=== PATIENT | female | born 1970 | race African-American/Black ===

== ENCOUNTER 2017-07-12 13:06 | Emergency (ER) | payer MEDICAID, SELFPAY ==
[2017-07-12] MEDS ORDERED: Morphine 4 MG/ML VIAL ONE (14:02)
[2017-07-12] MEDS ORDERED: Ondansetron ODT 4 MG TAB ONE (14:02)
[2017-07-12 14:08] LABS: #Lymphocytes 1.4 thou/uL (1.20-3.40); #Monocytes 0.4 thou/uL (0.11-0.59); #Neutrophils 2.4 thou/uL (1.40-6.50); %Basophils 0.3 % (0.0-1.0); %Lymphocytes 33.2 % (21.0-51.0); %Monocytes 8.8 % (0.0-10.0); %Neutrophils 56.7 % (42.0-75.0); Hemoglobin 11.5 g/dL (12.0-16.0); Mean Corpuscular HGB CONC 32.7 g/dL (32.0-36.0); Mean Corpuscular Hemoglobin 27.4 pg (27.0-31.0); Mean Corpuscular Volume 83.7 fl (81.0-99.0); Mean Platelet Volume 10.7 fL (7.4-10.4); Platelet Count 135 thou/uL (130-400); RBC Distribution Width 13.4 % (11.5-14.5); Red Blood Cell (RBC) Count 4.19 mill/uL (4.20-5.40); White Blood Cell (WBC) Count 4.2 thou/uL (4.8-10.8)
[2017-07-12 14:15] LABS: Reticulocyte Count 1.1 % (0.5-1.5)
[2017-07-12 14:32] LABS: ALT (SGPT) 11 U/L (8-55); AST (SGOT) 15 U/L (5-34); Albumin 4.2 g/dL (3.5-5.0); Alkaline Phosphatase 38 U/L (40-150); Anion Gap 10 mmol/L (10-20); BUN (Urea Nitrogen) 23 mg/dL (7.0-18.7); Bilirubin, Total 0.3 mg/dL (0.2-1.2); CRP (Inflammatory) Less than 0.50 mg/dL (= or < 0.5); Calc. Creatinine Clearance 0 mL/min (70-130); Calcium 9.3 mg/dL (7.8-10.44); Carbon Dioxide 25 mmol/L (22-29); Chloride 110 mmol/L (98-107); Estimated GFR-MDRD 71; Globulin 3.3 g/dL (2.4-3.5); Glucose 80 mg/dL (70-105); Potassium 4.2 mmol/L (3.5-5.1); Protein, Total 7.5 g/dL (6.0-8.3); Sodium 141 mmol/L (136-145)
--- NOTE | 2017-07-12 14:38 | RAD ---
TWO VIEWS RIGHT HIP: Indication: Right hip pain. Comparison: None. FINDINGS: There is moderate to severe osteoarthrosis of the right hip. No acute fracture or subluxation is evid ent. IMPRESSION: Osteoarthrosis of the right hip. No acute osseous abnormality. POS: [facility]
--- NOTE | 2017-07-12 14:43 | RAD ---
THREE VIEWS LUMBAR SPINE: Indication: Lumbar back pain. FINDINGS: There are five lumbar type vertebrae. Vertebral body heights and disc spaces are preserved. Spinal al ignment is within normal limits. IMPRESSION: No acute osseous abnormality. The lumbar spine appears radiographically normal. POS: [facility]
== END 2017-07-12 15:11 | disposition home or self-care (01) ==
LOC: ERS 13:06
DX: M25.551 Pain in right hip (principal); I10 Essential (primary) hypertension; D64.9 Anemia, unspecified; F17.210 Nicotine dependence, cigarettes, uncomplicated
CPT/HCPCS: 36415; 72100; 80053; 85025; 85046; 86140; 96361; 96374; J2270; Q0162

== ENCOUNTER 2018-03-09 18:38 | Emergency (ER) | payer OTHER, SELFPAY ==
[2018-03-09 20:16] LABS: #Eosinphils 0.1 thou/uL (0.0-0.7); #Lymphocytes 1.4 thou/uL (1.20-3.40); #Monocytes 0.2 thou/uL (0.11-0.59); #Neutrophils 2.5 thou/uL (1.40-6.50); %Basophils 0.6 % (0.0-1.0); %Eosinophils 2.3 % (0.0-10.0); %Lymphocytes 32.4 % (21.0-51.0); %Monocytes 5.7 % (0.0-10.0); Hemoglobin 11.2 g/dL (12.0-16.0); Mean Corpuscular HGB CONC 32.7 g/dL (32.0-36.0); Mean Corpuscular Hemoglobin 27.9 pg (27.0-31.0); Mean Corpuscular Volume 85.4 fL (78.0-98.0); Mean Platelet Volume 10.1 fL (7.4-10.4); Platelet Count 146 thou/uL (130-400); Red Blood Cell (RBC) Count 4.01 mill/uL (4.20-5.40); White Blood Cell (WBC) Count 4.3 thou/uL (4.8-10.8)
[2018-03-09 20:35] LABS: ALT (SGPT) 14 U/L (8-55); AST (SGOT) 16 U/L (5-34); Albumin 4.2 g/dL (3.5-5.0); Alkaline Phosphatase 43 U/L (40-150); Anion Gap 13 mmol/L (10-20); BUN (Urea Nitrogen) 19 mg/dL (7.0-18.7); Bilirubin, Total 0.3 mg/dL (0.2-1.2); Calc. Creatinine Clearance 0 mL/min (70-130); Calcium 8.8 mg/dL (7.8-10.44); Carbon Dioxide 22 mmol/L (22-29); Chloride 110 mmol/L (98-107); Estimated GFR-MDRD 75; Globulin 3.8 g/dL (2.4-3.5); Glucose 87 mg/dL (70-105); Potassium 4.1 mmol/L (3.5-5.1); Sodium 141 mmol/L (136-145)
[2018-03-09] MEDS ORDERED: Morphine 4 MG/ML VIAL ONE (21:15)
[2018-03-09] MEDS ORDERED: Ondansetron PF 4 MG/2 ML Vial ONE (21:15)
[2018-03-09] MEDS ORDERED: methylPREDNISolone Sod Succ/PF 125 MG/2 ML VIAL ONE (22:05)
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
== END 2018-03-09 23:34 | disposition home or self-care (01) ==
LOC: ERS 18:38
DX: J45.901 Unspecified asthma with (acute) exacerbation (principal); J06.9 Acute upper respiratory infection, unspecified; D64.9 Anemia, unspecified; D57.1 Sickle-cell disease without crisis; I10 Essential (primary) hypertension; F17.210 Nicotine dependence, cigarettes, uncomplicated
CPT/HCPCS: 36415; 71046; 80053; 85025; 85046; 87804; 96361; 96374; 96375; J2270; J2405; J2930; J7620

== ENCOUNTER 2018-03-11 09:27 | Emergency (ER) | payer OTHER ==
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
== END 2018-03-11 12:22 | disposition home or self-care (01) ==
LOC: ERS 09:27
DX: J45.901 Unspecified asthma with (acute) exacerbation (principal); F17.210 Nicotine dependence, cigarettes, uncomplicated; D57.1 Sickle-cell disease without crisis; I10 Essential (primary) hypertension; Z79.899 Other long term (current) drug therapy; Z79.51 Long term (current) use of inhaled steroids
CPT/HCPCS: 71045

== ENCOUNTER 2018-11-06 09:25 | Emergency (ER) | payer OTHER ==
[2018-11-06] MEDS ORDERED: Aspirin Chewable 81 MG TAB ONE (09:50)
[2018-11-06] MEDS ORDERED: Nitroglycerin 0.4 MG TAB 1 EACH ONE (09:50)
[2018-11-06 10:31] LABS: #Eosinphils 0.1 thou/uL (0.0-0.7); #Lymphocytes 1.2 thou/uL (1.20-3.40); #Monocytes 0.3 thou/uL (0.11-0.59); #Neutrophils 1.8 thou/uL (1.40-6.50); %Basophils 0.5 % (0.0-1.0); %Eosinophils 3.7 % (0.0-10.0); %Lymphocytes 34.3 % (21.0-51.0); %Monocytes 9.5 % (0.0-10.0); Hemoglobin 12.2 g/dL (12.0-16.0); Mean Corpuscular HGB CONC 31.6 g/dL (32.0-36.0); Mean Corpuscular Hemoglobin 26.9 pg (27.0-31.0); Mean Platelet Volume 10.6 fL (7.4-10.4); Platelet Count 141 thou/uL (130-400); RBC Distribution Width 13.8 % (11.5-14.5); Red Blood Cell (RBC) Count 4.52 mill/uL (4.20-5.40); White Blood Cell (WBC) Count 3.4 thou/uL (4.8-10.8)
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
[2018-11-06 10:41] LABS: Reticulocyte Count 1.1 % (0.5-1.5)
[2018-11-06 10:53] LABS: ALT (SGPT) 14 U/L (8-55); AST (SGOT) 19 U/L (5-34); Albumin 4.3 g/dL (3.5-5.0); Alkaline Phosphatase 43 U/L (40-150); Anion Gap 11 mmol/L (10-20); BUN (Urea Nitrogen) 14 mg/dL (7.0-18.7); Bilirubin, Total 0.4 mg/dL (0.2-1.2); Calc. Creatinine Clearance 0 mL/min (70-130); Calcium 9.5 mg/dL (7.8-10.44); Carbon Dioxide 26 mmol/L (22-29); Chloride 105 mmol/L (98-107); Estimated GFR-MDRD 88; Globulin 3.4 g/dL (2.4-3.5); Glucose 74 mg/dL (70-105); Protein, Total 7.7 g/dL (6.0-8.3); Sodium 138 mmol/L (136-145)
[2018-11-06] MEDS ORDERED: cloNIDine 0.1 MG TAB ONE (11:36)
[2018-11-06] MEDS ORDERED: Ondansetron PF 4 MG/2 ML Vial ONE (11:36)
[2018-11-06] MEDS ORDERED: Acetaminophen 500 MG TAB ONE (11:40)
[2018-11-06 12:33] LABS: Bilirubin Negative (Negative); Blood, Urine Negative (Negative); Clarity Clear (Clear); Glucose, Urine (Dipstick) Normal (Negative); Leukocyte Negative Leu/uL (Negative); Nitrite Negative (Negative); Protein, Urine (Dipstick) Negative (Neg-Trace); Urobilinogen Normal mg/dL (Less than 2)
--- NOTE | 2018-11-09 13:26 | EKG ---
Test Reason : Blood Pressure : / mmHG Vent. Rate : 071 BPM Atrial Rate : 071 BPM P-R Int : 190 ms QRS Dur : 084 ms QT Int : 410 ms P-R-T Axes : 029 007 022 degrees QTc Int : 445 ms Normal sinus rhythm Normal ECG Confirmed by MARY BAL, JOSE Murphy ([id number]), loan expeditor RENETTA BROWN ([id number]) on 11/09/2018 1:26:04 PM Referred By: Confirmed By:JOSE HERNANDEZ MD
== END 2018-11-06 14:18 | disposition home or self-care (01) ==
LOC: ERS 09:25
DX: R07.9 Chest pain, unspecified (principal); I10 Essential (primary) hypertension; D64.9 Anemia, unspecified; F17.210 Nicotine dependence, cigarettes, uncomplicated; Z79.899 Other long term (current) drug therapy; Z79.51 Long term (current) use of inhaled steroids
CPT/HCPCS: 71045; 80053; 81003; 84484; 85025; 85046; 93005; 94760; 96374; J2405

== ENCOUNTER 2019-12-05 19:38 | Emergency (ER) | payer OTHER, SELFPAY ==
[2019-12-05] MEDS ORDERED: Albuterol 200 PUFF (6.7GM INHALER) ONE (20:10)
[2019-12-05] MEDS ORDERED: Dexamethasone 10 MG/ML VIAL ONE (20:10)
[2019-12-05 20:15] LABS: #Eosinphils 0.1 thou/uL (0.0-0.7); #Lymphocytes 1.2 thou/uL (1.20-3.40); #Monocytes 0.4 thou/uL (0.11-0.59); #Neutrophils 3.8 thou/uL (1.40-6.50); %Basophils 0.2 % (0.0-1.0); %Lymphocytes 21.8 % (21.0-51.0); %Monocytes 6.5 % (0.0-10.0); %Neutrophils 70.5 % (42.0-75.0); Hemoglobin 11.1 g/dL (12.0-16.0); Mean Corpuscular HGB CONC 33.4 g/dL (32.0-36.0); Mean Corpuscular Hemoglobin 28.5 pg (27.0-31.0); Mean Corpuscular Volume 85.2 fL (78.0-98.0); Mean Platelet Volume 11.4 fL (7.4-10.4); Platelet Count 134 thou/uL (130-400); RBC Distribution Width 14.3 % (11.5-14.5); Red Blood Cell (RBC) Count 3.91 mill/uL (4.20-5.40); White Blood Cell (WBC) Count 5.3 thou/uL (4.8-10.8)
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
[2019-12-05] MEDS ORDERED: Azithromycin 500 MG VIAL ONE (20:36)
[2019-12-05] MEDS ORDERED: cefTRIAXone\\ROCEPHIN 2 GM VIAL ONE (20:36)
[2019-12-05 20:39] LABS: ALT (SGPT) 12 U/L (8-55); AST (SGOT) 18 U/L (5-34); Albumin 4.2 g/dL (3.5-5.0); Alkaline Phosphatase 45 U/L (40-110); Anion Gap 11 mmol/L (10-20); BUN (Urea Nitrogen) 12 mg/dL (7.0-18.7); Bilirubin, Total 0.3 mg/dL (0.2-1.2); Calc. Creatinine Clearance 0 mL/min (70-130); Calcium 8.8 mg/dL (7.8-10.44); Carbon Dioxide 26 mmol/L (22-29); Chloride 107 mmol/L (98-107); Estimated GFR-MDRD 81; Globulin 3.6 g/dL (2.4-3.5); Glucose 90 mg/dL (70-105); Potassium 3.6 mmol/L (3.5-5.1); Protein, Total 7.8 g/dL (6.0-8.3); Sodium 140 mmol/L (136-145)
[2019-12-05] MEDS ORDERED: Ibuprofen 200 MG TAB ONE (21:09)
[2019-12-05 21:20] LABS: Bacteria/HPF Rare-Few HPF (None Seen); Bilirubin Negative (Negative); Blood, Urine Negative (Negative); Clarity Clear (Clear); Glucose, Urine (Dipstick) Normal (Negative); Ketone, Urine Negative (Negative); Leukocyte 500 Leu/uL (Negative); Nitrite Negative (Negative); Protein, Urine (Dipstick) Negative (Neg-Trace); RBC/HPF 0-3 HPF (0-3); Urobilinogen Normal mg/dL (Less than 2)
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
[2019-12-05] MEDS ORDERED: Ondansetron PF 4 MG/2 ML Vial ONE (22:54)
[2019-12-06 15:25] LABS: SARS-CoV-2 MS2 Positive; SARS-CoV-2 N Gene Negative; SARS-CoV-2 S Gene Negative; SARS-CoV-2 by NAA Not Detected (NotDetected); SARS-CoV-2 orf1ab Negative
--- NOTE | 2019-12-13 10:06 | EKG ---
Test Reason : Blood Pressure : / mmHG Vent. Rate : 098 BPM Atrial Rate : 098 BPM P-R Int : 198 ms QRS Dur : 088 ms QT Int : 348 ms P-R-T Axes : 055 003 031 degrees QTc Int : 444 ms Normal sinus rhythm Possible Left atrial enlargement Borderline ECG Confirmed by JANENE BAL, CAPRICE ([id number]), visual effects editor RENETTA BROWN ([id number]) on 12/13/2019 10:05:46 AM Referred By: Confirmed By:CAPRICE WATTERS MD
== END 2019-12-05 23:27 | disposition home or self-care (01) ==
LOC: ERS 19:38
DX: R50.9 Fever, unspecified (principal); R05 Cough; R06.02 Shortness of breath; Z20.828 Contact with and (suspected) exposure to other viral communicable diseases; I10 Essential (primary) hypertension; D64.9 Anemia, unspecified; J45.909 Unspecified asthma, uncomplicated; F41.9 Anxiety disorder, unspecified; F17.210 Nicotine dependence, cigarettes, uncomplicated; Z79.899 Other long term (current) drug therapy
CPT/HCPCS: 36415; 71045; 71275; 80053; 81003; 81015; 83605; 84484; 85025; 85379; 87040; 87635; 93005; 96365; 96366; 96367; 96375; J0456; J0696; J1100; J2405; U0003

== ENCOUNTER 2021-01-19 02:48 | Inpatient (IN) | payer SELFPAY ==
[2021-01-19 03:13] VITALS: BMI 24.5
[2021-01-19] MEDS ORDERED: Albuterol Sulfate 1.25 MG/3 ML NEB NEB PRN (04:03)
[2021-01-19] MEDS: Nicotine 14 MG PATCH TD SCH (05:08)
[2021-01-19] MEDS: methylPREDNISolone Sod Succ 40 MG VIAL IVP SCH ×4 (05:08→23:55)
[2021-01-19 05:46] LABS: Reticulocyte Count 1.2 % (0.5-1.5)
[2021-01-19 05:47] LABS: #Lymphocytes 0.5 thou/uL (1.20-3.40); #Monocytes 0.1 thou/uL (0.11-0.59); #Neutrophils 5.4 thou/uL (1.40-6.50); %Basophils 0.5 % (0.0-1.0); %Lymphocytes 8.5 % (21.0-51.0); %Monocytes 2.4 % (0.0-10.0); %Neutrophils 88.6 % (42.0-75.0); Hemoglobin 10.1 g/dL (12.0-16.0); Mean Corpuscular Hemoglobin 27.5 pg (27.0-31.0); Mean Platelet Volume 10.6 fL (7.4-10.4); Platelet Count 122 thou/uL (130-400); RBC Distribution Width 14.5 % (11.5-14.5); Red Blood Cell (RBC) Count 3.66 mill/uL (4.20-5.40); White Blood Cell (WBC) Count 6.1 thou/uL (4.8-10.8)
[2021-01-19 06:09] LABS: Anion Gap 13 mmol/L (10-20); BUN (Urea Nitrogen) 15 mg/dL (7.0-18.7); Calc. Creatinine Clearance 77 mL/min (70-130); Calcium 8.8 mg/dL (7.8-10.44); Carbon Dioxide 25 mmol/L (22-29); Chloride 105 mmol/L (98-107); Glucose 260 mg/dL (70-105); Potassium 4.4 mmol/L (3.5-5.1); Sodium 139 mmol/L (136-145)
[2021-01-19] MEDS ORDERED: FLU VACC QS2021-22(6MOS UP)/PF 60 MCG/0.5 ML SYRINGE IM ONE (09:00)
[2021-01-19] MEDS: Benzonatate 100 MG CAP PO PRN ×2 (09:40→20:13)
[2021-01-19] MEDS: Acetaminophen 325 MG TAB PO PRN ×2 (09:40→19:56)
[2021-01-19] MEDS ORDERED: Acetylcysteine 20% 200 MG/ML 30 ML VIAL INH SCH (12:18)
[2021-01-19] MEDS ORDERED: Fioricet 325/50/40 mg Tablet PO SCH (12:30)
[2021-01-19] MEDS ORDERED: Amlodipine 5 MG TAB PO SCH (14:15)
[2021-01-19] MEDS: hydrALAZINE 20 MG/ML VIAL SLOW IVP PRN ×2 (14:18→17:49)
[2021-01-19] MEDS ORDERED: Polyethylene Glycol 3350 17 GM Packet PO PRN (15:42)
[2021-01-19] MEDS: Fioricet 325/50/40 mg Tablet PO PRN (19:55)
[2021-01-19] MEDS: guaiFENesin ER 600 MG TAB PO SCH (20:09)
[2021-01-19] MEDS: busPIRone HCl 10 MG TAB PO SCH (20:09)
[2021-01-19] MEDS: cloNIDine 0.2 MG TAB PO SCH (20:10)
[2021-01-19] MEDS: Acetylcysteine 20% 200 MG/ML 30 ML VIAL INH SCH (20:11)
[2021-01-19] MEDS: Senokot S 8.6-50 MG TAB PO SCH (20:12)
[2021-01-20] MEDS: Nicotine 14 MG PATCH TD SCH ×2 (05:11→05:16)
[2021-01-20] MEDS: methylPREDNISolone Sod Succ 40 MG VIAL IVP SCH (05:11)
[2021-01-20] MEDS: Benzonatate 100 MG CAP PO PRN (05:29)
[2021-01-20] MEDS: Fioricet 325/50/40 mg Tablet PO PRN (05:29)
[2021-01-20] MEDS: Acetaminophen 325 MG TAB PO PRN (05:33)
[2021-01-20] MEDS: Acetylcysteine 20% 200 MG/ML 30 ML VIAL INH SCH (06:33)
[2021-01-20] MEDS ORDERED: Amlodipine 5 MG TAB PO SCH (09:00)
[2021-01-20] MEDS: busPIRone HCl 10 MG TAB PO SCH (09:18)
[2021-01-20] MEDS: cloNIDine 0.2 MG TAB PO SCH (09:18)
[2021-01-20] MEDS: guaiFENesin ER 600 MG TAB PO SCH (09:19)
[2021-01-20] MEDS: Senokot S 8.6-50 MG TAB PO SCH (09:19)
[2021-01-20 11:36] VITALS: BP 90/57; TEMP 97.8
== END 2021-01-20 12:25 | disposition home or self-care (01) | DRG 189 ==
LOC: INTOOBSV 02:48 → 2SW 02:48 → OBSVTOIN 12:19 → T4-B 15:07
PROVIDERS: ADMIT Student in an Organized Health Care Education/Training Program; ATTEND Family Medicine
DX: J96.01 Acute respiratory failure with hypoxia (principal); J45.901 Unspecified asthma with (acute) exacerbation; I10 Essential (primary) hypertension; Z20.822 Contact with and (suspected) exposure to COVID-19; Z96.641 Presence of right artificial hip joint; F17.210 Nicotine dependence, cigarettes, uncomplicated; D57.1 Sickle-cell disease without crisis; Z86.73 Personal history of transient ischemic attack (TIA), and cerebral infarction without residual deficits; Z71.6 Tobacco abuse counseling; Z79.899 Other long term (current) drug therapy; Z98.51 Tubal ligation status
CPT/HCPCS: 36415; 80048; 85025; 85046; 94640; J0132; J0360; J2920; J7620

== ENCOUNTER 2021-07-04 10:16 | Inpatient (IN) | payer OTHER, SELFPAY ==
[2021-07-04] MEDS ORDERED: Labetalol HCl 100 MG/20 ML VIAL ONE (10:49)
[2021-07-04 10:59] LABS: #Lymphocytes 1.2 thou/uL (1.20-3.40); #Monocytes 0.4 thou/uL (0.11-0.59); #Neutrophils 1.8 thou/uL (1.40-6.50); %Basophils 1.4 % (0.0-1.0); %Lymphocytes 35.3 % (21.0-51.0); %Monocytes 11.4 % (0.0-10.0); %Neutrophils 50.9 % (42.0-75.0); Hemoglobin 12.1 g/dL (12.0-16.0); Mean Corpuscular HGB CONC 32.1 g/dL (32.0-36.0); Mean Corpuscular Hemoglobin 28.2 pg (27.0-31.0); Mean Corpuscular Volume 87.7 fL (78.0-98.0); Mean Platelet Volume 10.5 fL (7.4-10.4); Platelet Count 123 thou/uL (130-400); RBC Distribution Width 13.5 % (11.5-14.5); Red Blood Cell (RBC) Count 4.29 mill/uL (4.20-5.40); White Blood Cell (WBC) Count 3.5 thou/uL (4.8-10.8)
[2021-07-04 11:18] LABS: ALT (SGPT) 17 U/L (8-55); AST (SGOT) 21 U/L (5-34); Albumin 4.3 g/dL (3.5-5.0); Alkaline Phosphatase 38 U/L (40-110); Anion Gap 13 mmol/L (10-20); BUN (Urea Nitrogen) 15 mg/dL (7.0-18.7); Bilirubin, Total 0.5 mg/dL (0.2-1.2); Calc. Creatinine Clearance 0 mL/min (70-130); Calcium 9.2 mg/dL (7.8-10.44); Carbon Dioxide 23 mmol/L (22-29); Chloride 109 mmol/L (98-107); Globulin 3.6 g/dL (2.4-3.5); Glucose 84 mg/dL (70-105); Potassium 3.6 mmol/L (3.5-5.1); Protein, Total 7.9 g/dL (6.0-8.3); Sodium 141 mmol/L (136-145)
[2021-07-04] MEDS ORDERED: Senokot S 8.6-50 MG TAB PO PRN (14:38)
[2021-07-04] MEDS ORDERED: HYDROcodone/Acetaminophen 5/325 mg Tablet PO PRN (14:38)
[2021-07-04] MEDS ORDERED: Loperamide HCl 2 MG CAP PO PRN (14:38)
[2021-07-04] MEDS ORDERED: Acetaminophen 325 MG TAB PO PRN (14:38)
[2021-07-04] MEDS ORDERED: Calcium Carbonate 500 MG ChewTAB PO PRN (14:38)
[2021-07-04] MEDS ORDERED: Guaifenesin DM 100-10/5 ML UDCUP PO PRN (14:38)
[2021-07-04] MEDS ORDERED: Cyclobenzaprine 10 MG TAB PO SCH (14:45)
[2021-07-04] MEDS ORDERED: Aspirin 81 mg Enteric Coated Tablet PO SCH (15:30)
[2021-07-04] MEDS ORDERED: Lidocaine 5% Patch TD SCH (16:00)
[2021-07-04] MEDS ORDERED: Nicotine 14 MG PATCH TD SCH (16:00)
[2021-07-04 17:13] VITALS: BMI 26.7
[2021-07-04] MEDS: Famotidine 20 MG TAB PO SCH (20:56)
[2021-07-04] MEDS ORDERED: Atorvastatin Calcium 40 MG TAB PO SCH (21:00)
[2021-07-05 00:05] LABS: SARS-CoV-2 PCR by NAA Not Detected (NotDetected)
[2021-07-05] MEDS ORDERED: Transdermal Patch Removal TOP SCH (04:00)
[2021-07-05 05:11] LABS: #Monocytes 0.2 thou/uL (0.11-0.59); #Neutrophils 1.4 thou/uL (1.40-6.50); %Eosinophils 1.3 % (0.0-10.0); %Lymphocytes 38.2 % (21.0-51.0); %Monocytes 8.5 % (0.0-10.0); Hemoglobin 10.8 g/dL (12.0-16.0); Mean Corpuscular HGB CONC 31.4 g/dL (32.0-36.0); Mean Corpuscular Hemoglobin 27.7 pg (27.0-31.0); Mean Corpuscular Volume 88.2 fL (78.0-98.0); Mean Platelet Volume 10.8 fL (7.4-10.4); Platelet Count 124 thou/uL (130-400); RBC Distribution Width 13.6 % (11.5-14.5); Red Blood Cell (RBC) Count 3.89 mill/uL (4.20-5.40); White Blood Cell (WBC) Count 2.6 thou/uL (4.8-10.8)
[2021-07-05 05:22] LABS: Hemoglobin A1c 5.6 % (4.0-6.0)
[2021-07-05 05:35] LABS: Anion Gap 12 mmol/L (10-20); BUN (Urea Nitrogen) 15 mg/dL (7.0-18.7); Calc. Creatinine Clearance 107 mL/min (70-130); Calcium 8.7 mg/dL (7.8-10.44); Carbon Dioxide 23 mmol/L (22-29); Cardiac Risk 4.6 (Less than 4.5); Chloride 108 mmol/L (98-107); Cholesterol 185 mg/dl (< 200 Desired); Glucose 88 mg/dL (70-105); HDL Cholesterol 40 mg/dL (>60 Neg Risk); LDL Cholesterol, Calculated 117 mg/dL; Potassium 3.4 mmol/L (3.5-5.1); Sodium 140 mmol/L (136-145); Triglycerides 139 mg/dL (Less than 150)
[2021-07-05] MEDS: Famotidine 20 MG TAB PO SCH (08:28)
[2021-07-05] MEDS ORDERED: Aspirin 81 mg Enteric Coated Tablet PO SCH (09:00)
[2021-07-05] MEDS ORDERED: Fioricet 325/50/40 mg Tablet PO PRN (09:26)
[2021-07-05 12:22] VITALS: TEMP 99.1
[2021-07-05] MEDS ORDERED: Albuterol Sulfate 1.25 MG/3 ML NEB NEB SCH (12:30)
[2021-07-05 12:42] VITALS: BP 152/110
[2021-07-05] MEDS ORDERED: Amlodipine 5 MG TAB PO SCH (15:00)
[2021-07-05] MEDS ORDERED: Non-Formulary Item 1 EACH (Albuterol Sulfate [Albuterol Sulfate Neb] 0.63 MG/3 ML Vial.Ne NEB SCH (15:00)
[2021-07-05] MEDS ORDERED: busPIRone HCl 10 MG TAB PO SCH (21:00)
[2021-07-05] MEDS ORDERED: Losartan 25 MG TAB PO SCH (21:00)
== END 2021-07-05 15:52 | disposition home or self-care (01) | DRG 69 ==
LOC: ERS 10:16 → NEURO 15:47
PROVIDERS: ADMIT Internal Medicine; ATTEND Internal Medicine
DX: G45.9 Transient cerebral ischemic attack, unspecified (principal); G81.94 Hemiplegia, unspecified affecting left nondominant side; Z20.822 Contact with and (suspected) exposure to COVID-19; J45.909 Unspecified asthma, uncomplicated; F17.210 Nicotine dependence, cigarettes, uncomplicated; I10 Essential (primary) hypertension; D57.1 Sickle-cell disease without crisis; K21.9 Gastro-esophageal reflux disease without esophagitis; Z79.51 Long term (current) use of inhaled steroids; Z79.52 Long term (current) use of systemic steroids; Z79.899 Other long term (current) drug therapy; Z86.73 Personal history of transient ischemic attack (TIA), and cerebral infarction without residual deficits
CPT/HCPCS: 36415; 70450; 70551; 80048; 80053; 80061; 83036; 84443; 84484; 85025; 93005; 93306; 93880; 94640; 96374; U0003; U0005

== ENCOUNTER 2024-03-24 20:39 | Emergency (ER) | payer SELFPAY ==
[2024-03-24 21:45] LABS: Lipase 20 U/L (8-78)
[2024-03-24 21:48] LABS: Acetaminophen Less than 10 mcg/mL (Less than 10); Alcohol 49.8 mg/dL (Less than 10); Salicylate Less than 8.0 mg/dL (Less than 8.0)
[2024-03-24 22:40] LABS: Bacteria/HPF None Seen HPF (None Seen); Bilirubin Negative (Negative); Blood, Urine Negative (Negative); CAUTI Indications for Culture Alt mental st,lethar; Clarity Clear (Clear); Glucose, Urine (Dipstick) Normal (Negative); Ketone, Urine Negative (Negative); Leukocyte 75 Leu/uL (Negative); Nitrite Negative (Negative); Protein, Urine (Dipstick) Negative (Neg-Trace); RBC/HPF 0-3 HPF (0-3); Specific Gravity, Urine 1.016 (1.002-1.036); Squamous Epithelial 0-3 HPF (0-3); Urobilinogen Normal mg/dL (Less than 2); WBC/HPF 0-3 HPF (0-3); pH, Urine 6.5 (5.0-9.0)
[2024-03-24 22:46] LABS: #Basophils Less than 0.03 10x3/uL (0.0-0.2); #Eosinophils Less than 0.03 10x3/uL (0.0-0.7); %Eosinophils 0.4 % (0.0-10.0); %Lymphocytes 39.7 % (21.0-51.0); %Monocytes 8.6 % (0.0-10.0); %Neutrophils 50.9 % (42.0-75.0); Hematocrit 34.6 % (36.0-47.0); Hemoglobin 11.3 g/dL (12.0-16.0); Mean Corpuscular HGB CONC 32.7 g/dL (32.0-36.0); Mean Corpuscular Hemoglobin 27.5 pg (27.0-31.0); Mean Corpuscular Volume 84.2 fL (78.0-98.0); Mean Platelet Volume 11.4 fL (7.4-10.4); Platelet Count 167 10x3/uL (130-400); RBC Distribution Width 14.5 % (11.5-14.5); Red Blood Cell (RBC) Count 4.11 mill/uL (4.20-5.40)
[2024-03-24 22:54] LABS: Amphetamine Not Detected (NotDetected); Barbiturates Screen Detected (NotDetected); Benzodiazepine Screen Not Detected (NotDetected); Cocaine Metabolite Screen Not Detected (NotDetected); Methadone Not Detected (NotDetected); Methamphetamine Not Detected (NotDetected); Opiate Screen Not Detected (NotDetected); Oxycodone Screen Not Detected (NotDetected); Phencyclidine (PCP) Not Detected (NotDetected); THC/Cannabinoid Screen Not Detected (NotDetected); Tricyclic Screen Not Detected (NotDetected)
[2024-03-24 22:56] LABS: Urine Culture Reflex No No
[2024-03-24 22:56] LABS: ALT (SGPT) 16 U/L (Less than 34); AST (SGOT) 37 U/L (11-34); Albumin 3.7 g/dL (3.1-4.5); Alkaline Phosphatase 45 U/L (40-110); Anion Gap 16 mmol/L (10-20); BUN (Urea Nitrogen) 15 mg/dL (9.8-20.1); Bilirubin, Total 0.3 mg/dL (0.3-1.2); Calc. Creatinine Clearance 0 mL/min (70-130); Calcium 8.6 mg/dL (7.8-10.44); Carbon Dioxide 21 mmol/L (22-29); Chloride 107 mmol/L (98-107); Estimated GFR 87; Globulin 4.4 g/dL (2.4-3.5); Glucose 84 mg/dL (70-105); Potassium 3.5 mmol/L (3.5-5.1); Protein, Total 8.1 g/dL (6.0-8.3); Sodium 140 mmol/L (136-145)
[2024-03-24 23:01] LABS: Troponin I Less than 0.010 ng/mL (< 0.028)
== END 2024-03-25 00:29 | disposition home or self-care (01) ==
LOC: ERS 20:39
DX: R56.9 Unspecified convulsions (principal); I10 Essential (primary) hypertension; E78.5 Hyperlipidemia, unspecified; J45.909 Unspecified asthma, uncomplicated; F17.210 Nicotine dependence, cigarettes, uncomplicated; Z79.899 Other long term (current) drug therapy
CPT/HCPCS: 36415; 70450; 71045; 80053; 80306; 80307; 81001; 82140; 83690; 84146; 84484; 85025; 85379; 93005; 96360